=== PATIENT | female | born 1995 | race African-American/Black ===

== ENCOUNTER 2023-06-12 14:21 | Emergency (ER) | payer BC ==
[2023-06-12 14:30] VITALS: BP 138/81; PULSE 75; RESP 18; TEMP 98.4; BMI 34.4
== END 2023-06-12 15:57 | disposition home or self-care (01) ==
LOC: JERFT 14:21
DX: R10.11 Right upper quadrant pain (principal); S20.211A Contusion of right front wall of thorax, initial encounter; W01.198A Fall on same level from slipping, tripping and stumbling with subsequent striking against other object, initial encounter
CPT/HCPCS: 99282-25